=== PATIENT | female | born 1985 | race Caucasian/White ===

== ENCOUNTER 2017-04-09 17:29 | Emergency (ER) | payer OTHER ==
[2017-04-09 17:43] VITALS: BP 100/67; PULSE 74; RESP 18; TEMP 98.1; O2SAT 99
[2017-04-09 17:44] LABS: COLOR YELLOW; LEUKOCYTE ESTERASE,URINE 2+ (NEGATIVE); NITRITE,URINE NEGATIVE (NEGATIVE)
[2017-04-09 17:58] LABS: BACTERIA 2+ /hpf (NONE SEEN); RBC,URINE 50-182 /hpf (0-3); WBC,URINE 25-50 /hpf (0-3)
--- NOTE | 2017-04-09 18:06 | EDPHY ---
H & P Stated Complaint: urinary frequency x 1 week, burning and today developed hematuria Time Seen by Provider: 04/09/17 17:45 HPI/ROS: Chief Complaint: Hematuria HPI: 32-year-old woman presenting with 1 week of urinary urgency or frequency. Patient noted blood in her urine today. She has a history of UTIs in the past. No back pain. Some mild low abdominal cramping. Last menstrual. Was a week ago and normal. Patient states she is not . No fevers or chills. No nausea or vomiting. ROS: 10 point Review of Systems is negative except as noted in the HPI. PMH: None Medications: None Allergies: Azithromycin ciprofloxacin Social History: No smoking, occasional alcohol, no recreational drug use Family History: non-contributory Physical Exam: Gen: Awake, Alert, No Distress HEENT: Nose: no rhinorrhea Eyes: PERRLA, EOMI Mouth: Moist mucosa Neck: Supple, no JVD Chest: nontender, lungs clear to auscultation Heart: S1, S2 normal, no murmur Abd: Soft, very mild low abdominal tenderness palpation of her bladder, no guarding Back: no CVA tenderness, no midline tenderness Ext: no edema, non-tender Skin: no rash Neuro: CN II-XII intact, Sensation grossly intact, Strength 5/5 in bilateral upper and lower extremities - Personal History LMP (Females 10-55): - Medical/Surgical History Hx Asthma: No Hx Chronic Respiratory Disease: No Hx Diabetes: No Hx Cardiac Disease: No Hx Renal Disease: No Hx Cirrhosis: No Hx Alcoholism: No Hx HIV/AIDS: No Hx Splenectomy or Spleen Trauma: No Other PMH: ovarian cysts - Social History Smoking Status: Never smoked Constitutional: Initial Vital Signs Temperature (C) 36.7 C 04/09/17 17:40 Heart Rate 74 04/09/17 17:40 Respiratory Rate 18 04/09/17 17:40 Blood Pressure 100/67 04/09/17 17:40 O2 Sat (%) 99 04/09/17 17:40 O2 Delivery Mode Room Air Allergies/Adverse Reactions: azithromycin Allergy (Verified 04/09/17 17:40) ciprofloxacin Allergy (Verified 04/09/17 17:40) Home Medications: Medication Instructions Recorded Nitrofurantoin Monohyd/M-Cryst 100 mg PO BID #10 capsule 04/09/17 [Macrobid 100 mg Capsule] Phenazopyridine HCl [Pyridium] 200 mg PO TID #6 tab 04/09/17 Medical Decision Making - Data Points Laboratory Results: 04/09/17 17:30 Urine Color YELLOW Urine Appearance CLOUDY Urine pH 7.0 (5.0-7.5) Ur Specific [place] 1.025 (1.002-1.030) Urine Protein 1+ H (NEGATIVE) Urine Ketones NEGATIVE (NEGATIVE) Urine Blood 3+ H (NEGATIVE) Urine Nitrate NEGATIVE (NEGATIVE) Urine Bilirubin NEGATIVE (NEGATIVE) Urine Urobilinogen 0.2 EU EU (0.2-1.0) Ur Leukocyte Esterase 2+ H (NEGATIVE) Urine RBC 50-182 /hpf H /hpf (0-3) Urine WBC 25-50 /hpf H /hpf (0-3) Ur Epithelial Cells 1+ /lpf /lpf (NONE-1+) Urine Bacteria 2+ /hpf H /hpf (NONE SEEN) Urine Glucose NEGATIVE (NEGATIVE) Departure - Departure Disposition: Home, Routine, Self-Care Clinical Impression: Urinary tract infection Condition: Good Instructions: Urinary Tract Infection in Women (ED) Additional Instructions: Follow up with primary care physician in 5-7 days if symptoms are not improving. Referrals: Medina Cruz MD [Primary Care Provider] - As per Instructions Prescriptions: Nitrofurantoin Monohyd/M-Cryst [Macrobid 100 mg Capsule] 100 mg PO BID #10 capsule Phenazopyridine HCl [Pyridium] 200 mg PO TID #6 tab
== END 2017-04-09 18:10 | disposition home or self-care (01) ==
LOC: CED 17:29
DX: O23.40 Unspecified infection of urinary tract in pregnancy, unspecified trimester (principal); B96.89 Other specified bacterial agents as the cause of diseases classified elsewhere; Z3A.00 Weeks of gestation of pregnancy not specified
CPT/HCPCS: 81003-PO; 81015-PO

== ENCOUNTER → 2017-06-20 | Outpatient (CLI) | payer OTHER | LOC: BMCIMAGING 10:58 | PROVIDERS: ATTEND Internal Medicine | DX: N63 Unspecified lump in breast (principal) | CPT/HCPCS: G0204 ==

== ENCOUNTER 2018-10-21 21:08 | Emergency (ER) | payer OTHER ==
--- NOTE | 2018-10-21 21:15 | EDPHY ---
H & P Stated Complaint: Left side abd pain, hx ovarian cysts, pain, vaginal bleeding Time Seen by Provider: 10/21/18 21:15 HPI/ROS: HPI: This is a 33-year-old female who presents with Chief Complaint: Left side abd pain, hx ovarian cysts, pain, vaginal bleeding Location: Left-sided abdomen Quality: Pain Duration: Since this morning Signs and Symptoms: no fever, + nausea, + vomiting x 1, no hematemesis, no blood in stool, no abdominal bloating, no diarrhea, no back pain, no urinary symptoms, no vaginal discharge, no indigestion, no chest pain, no shortness of breath Timing: Acute Severity: 10 out 10 Context: Patient reports that she started spotting this morning and then developed left lower quadrant nonradiating moderate pain that has persisted all day. Patient reports that she has a history of ovarian cyst and had an ultrasound in May in this ER that showed left small adnexal cyst. She is followed at the [facility]. Patient has the IUD. Irregular menses. Patient reports that she felt nauseous all day and actually vomited once prior to arrival to the emergency room. Reports decreased appetite today and no bowel movement. Modifying Factors: None Comment: ROS: A comprehensive 10 system review of systems is otherwise negative aside from elements mentioned in the history of present illness. MEDICAL/SURGICAL/SOCIAL HISTORY: Medical history: Ovarian cyst Surgical history: Denies Social history: Never smoked. Family history noncontributory. CONSTITUTIONAL: Extremely well-appearing slightly anxious with mild distress adult white female, awake and alert, no obvious distress HEENT: Atraumatic and normocephalic, PERRL, EOMI. Nares patent; no rhinorrhea; no nasal mucosal edema. Tympanic membranes clear. Oropharynx clear, no exudate and moist pink mucosa. Airway patent. No lymphadenopathy. No meningismus. Cardiovascular: Normal S1/S2, regular rate, regular rhythm, without murmur rub or gallop. PULMONARY/CHEST: Symmetrical and nontender. Clear to auscultation bilaterally. Good air movement. No accessory muscle usage. ABDOMEN: Soft, nondistended, mild left lower quadrant tenderness to deep palpation, no rebound, no guarding, no peritoneal signs, no masses or organomegaly. No CVAT. EXTREMITIES: 2/2 pulses, strength 5/5, no deformities, no clubbing, no cyanosis or edema. NEUROLOGICAL: no focal neuro deficits. GCS 15. SKIN: Warm and dry, no erythema. no rash. Good capillary refill. Source: Patient Exam Limitations: No limitations - Personal History LMP (Females 10-55): Irregular Current Tetanus Diphtheria and Acellular Pertussis (TDAP): Yes - Medical/Surgical History Hx Asthma: No Hx Chronic Respiratory Disease: No Hx Diabetes: No Hx Cardiac Disease: No Hx Renal Disease: No Hx Cirrhosis: No Hx Alcoholism: No Hx HIV/AIDS: No Hx Splenectomy or Spleen Trauma: No Other PMH: ovarian cysts - Social History Smoking Status: Never smoked Constitutional: Initial Vital Signs Temperature (C) 36.4 C 10/21/18 21:09 Heart Rate 71 10/21/18 21:09 Respiratory Rate 16 10/21/18 21:09 Blood Pressure 106/71 10/21/18 21:09 O2 Sat (%) 97 10/21/18 21:09 O2 Delivery Mode Room Air Allergies/Adverse Reactions: azithromycin Allergy (Verified 10/21/18 21:09) ciprofloxacin Allergy (Verified 10/21/18 21:09) Home Medications: Medication Instructions Recorded Nitrofurantoin Monohyd/M-Cryst 100 mg PO BID #10 capsule 04/09/17 [Macrobid 100 mg Capsule] Phenazopyridine HCl [Pyridium] 200 mg PO TID #6 tab 04/09/17 Nitrofurantoin Macrobid [Macrobid] 100 mg PO BID #14 cap 10/21/18 Ondansetron Odt [Zofran Odt 4 mg 4 mg PO Q4 PRN #12 tab 10/21/18 (*)] oxyCODONE/APAP 5/325 [Percocet 1 - 2 tab PO Q4H PRN #10 tab 10/21/18 5/325 (*)] Medical Decision Making - Diagnostics Imaging Results: Imaging Impressions Pelvic/Renal Ultrasound 10/21/18 21:36 Impression: Normal ultrasound pelvis. Incidental hemorrhagic cyst right adnexa. Findings discussed with Sandy Wallace PAC at 22:32 hour, 10/21/2018. ED Course/Re-evaluation: Vital signs reviewed and stable upon arrival. No systemic signs. IV access and laboratory studies along with urinalysis and pelvic ultrasound ordered Patient given 1 L normal saline, IV Toradol 30 mg IV promethazine 12.5 mg 2223: Laboratory studies reviewed. No signs of leukocytosis/anemia/platelet dysfunction/RANDI/electrolyte imbalance/. 2235: Called by radiologist, Dr. Morrissey, who reports pelvic ultrasound shows right hemorrhagic cyst measuring 3 cm in diameter, small amount of free fluid, no fibroids, no ovarian torsion, no ectopic with good blood flow to both ovaries. 2243: Notified by RN that patient is complaining of pain that is 7/10. IV morphine 2 mg ordered 2315: Urinalysis shows 1+ nitrate, blood, trace LE, 3+ bacteria; sent for urine culture 0005: Reassessed patient who reports adequate relief of pain. She reports that she feels comfortable being discharged home. given a prepack for Macrobid/Zofran/Percocet and prescription for the same Advised to follow up with [facility] This patient was seen under the supervision of my secondary supervising physician. I evaluated care for this patient independently. Discussed this patient with Dr. Roberts who did not see the patient. Differential Diagnosis: Abdominal pain in a female including but not limited to ovarian cyst, pelvic inflammatory disease, ovarian torsion, urinary tract infection, and appendicitis. - Data Points Laboratory Results: Laboratory Results 10/21/18 21:22 10/21/18 21:22 10/21/18 10/21/18 10/21/18 22:55 21:22 21:22 WBC RBC Hgb Hct MCV MCH MCHC RDW Plt Count MPV Neut % (Auto) Lymph % (Auto) [place] % (Auto) Eos % (Auto) Baso % (Auto) Nucleat RBC Rel Count Absolute Neuts (auto) Absolute Lymphs (auto) Absolute Monos (auto) Absolute Eos (auto) Absolute Basos (auto) Absolute Nucleated RBC Immature Gran % Immature Gran # Sodium 137 mEq/L mEq/L (135-145) Potassium 3.9 mEq/L mEq/L (3.5-5.2) Chloride 106 mEq/L mEq/L (97-110) Carbon Dioxide 25 mEq/l mEq/l (22-31) Anion Gap 6 mEq/L mEq/L (6-14) BUN 12 mg/dL mg/dL (7-23) Creatinine 0.6 mg/dL mg/dL (0.6-1.0) Estimated GFR > 60 Glucose 89 mg/dL mg/dL (70-100) Calcium 8.8 mg/dL mg/dL (8.5-10.4) Beta HCG, Qual NEGATIVE Urine Color YELLOW Urine Appearance CLEAR Urine pH 7.0 (5.0-7.5) Ur Specific [place] 1.004 (1.002-1.030) Urine Protein NEGATIVE (NEGATIVE) Urine Ketones NEGATIVE (NEGATIVE) Urine Blood 1+ H (NEGATIVE) Urine Nitrate POSITIVE H (NEGATIVE) Urine Bilirubin NEGATIVE (NEGATIVE) Urine Urobilinogen NEGATIVE EU EU (0.2-1.0) Ur Leukocyte Esterase TRACE H (NEGATIVE) Urine RBC 1-3 /hpf /hpf (0-3) Urine WBC 5-10 /hpf H /hpf (0-3) Ur Epithelial Cells TRACE /lpf /lpf (NONE-1+) Urine Bacteria 3+ /hpf H /hpf (NONE SEEN) Urine Glucose NEGATIVE (NEGATIVE) 10/21/18 21:22 WBC 5.54 10^3/uL 10^3/uL (3.80-9.50) RBC 4.21 10^6/uL 10^6/uL (4.18-5.33) Hgb 13.1 g/dL g/dL (12.6-16.3) Hct 38.3 % % (38.0-47.0) MCV 91.0 fL fL (81.5-99.8) MCH 31.1 pg pg (27.9-34.1) MCHC 34.2 g/dL g/dL (32.4-36.7) RDW 11.7 % % (11.5-15.2) Plt Count 272 10^3/uL 10^3/uL (150-400) MPV 9.2 fL fL (8.7-11.7) Neut % (Auto) 44.1 % % (39.3-74.2) Lymph % (Auto) 38.1 % % (15.0-45.0) [place] % (Auto) 11.9 % % (4.5-13.0) Eos % (Auto) 5.2 % % (0.6-7.6) Baso % (Auto) 0.5 % % (0.3-1.7) Nucleat RBC Rel Count 0.0 % % (0.0-0.2) Absolute Neuts (auto) 2.44 10^3/uL 10^3/uL (1.70-6.50) Absolute Lymphs (auto) 2.11 10^3/uL 10^3/uL (1.00-3.00) Absolute Monos (auto) 0.66 10^3/uL 10^3/uL (0.30-0.80) Absolute Eos (auto) 0.29 10^3/uL 10^3/uL (0.03-0.40) Absolute Basos (auto) 0.03 10^3/uL 10^3/uL (0.02-0.10) Absolute Nucleated RBC 0.00 10^3/uL 10^3/uL (0-0.01) Immature Gran % 0.2 % % (0.0-1.1) Immature Gran # 0.01 10^3/uL 10^3/uL (0.00-0.10) Sodium Potassium Chloride Carbon Dioxide Anion Gap BUN Creatinine Estimated GFR Glucose Calcium Beta HCG, Qual Urine Color Urine Appearance Urine pH Ur Specific [place] Urine Protein Urine Ketones Urine Blood Urine Nitrate Urine Bilirubin Urine Urobilinogen Ur Leukocyte Esterase Urine RBC Urine WBC Ur Epithelial Cells Urine Bacteria Urine Glucose Medications Given: Discontinued Medications Sodium Chloride (Ns) 1,000 mls @ 0 mls/hr IV ONCE ONE; Wide Open PRN Reason: Protocol Stop: 10/21/18 21:37 Last Admin: 10/21/18 21:49 Dose: 1,000 mls Ketorolac Tromethamine (Toradol) 30 mg IVP EDNOW ONE Stop: 10/21/18 21:37 Last Admin: 10/21/18 21:50 Dose: 30 mg Morphine Sulfate (Morphine) 2 mg IVP EDNOW ONE Stop: 10/21/18 22:43 Last Admin: 10/21/18 22:52 Dose: 2 mg Nitrofurantoin (Macrobid 100mg Prepack#2) 1 btl TAKEHOME EDNOW ONE PRN Reason: Protocol Stop: 10/21/18 23:15 Last Admin: 10/21/18 23:36 Dose: 1 btl Ondansetron HCl (Zofran Odt 4 Mg Prepack#2) 1 btl TAKEHOME EDNOW ONE Stop: 10/21/18 23:16 Last Admin: 10/21/18 23:38 Dose: 1 btl Oxycodone/Acetaminophen (Percocet 5/325mg Prepack#4) 1 btl TAKEHOME EDNOW ONE Stop: 10/21/18 23:16 Last Admin: 10/21/18 23:37 Dose: 1 btl Promethazine HCl (Phenergan) 12.5 mg IVP ONCE ONE Stop: 10/21/18 21:37 Last Admin: 10/21/18 21:51 Dose: 12.5 mg Departure - Departure Disposition: Home, Routine, Self-Care Clinical Impression: Right ovarian cyst, Cystitis with hematuria Condition: Good Instructions: Ovarian Cyst (ED), Urinary Tract Infection in Women (ED) Additional Instructions: Rest as much as possible until you are feeling better. Consume a minimum of 8-10 glasses of water or electrolyte fluid replacement drinks that include Gatorade, Powerade, Pedialyte. Eat a bland diet for the next 48 hours and then slowly advance as tolerated. Take Zofran 1 tab every 4 hours as needed for nausea, vomiting. Take Tylenol 650 mg every 4 hours and/or Ibuprofen 600 mg every 8 hours with food as needed for pain. Use Percocet every 6 hours as needed for severe/break through pain. Do not use Tylenol and Percocet concomitantly. Take Macrobid twice daily x7 days. [facility] if symptoms persist at which time they will evaluate and recommend with you if conservative management versus further intervention is indicated. Referrals: [facility] [Outside] - As per Instructions Prescriptions: Nitrofurantoin Macrobid [Macrobid] 100 mg PO BID #14 cap Ondansetron Odt [Zofran Odt 4 mg (*)] 4 mg PO Q4 PRN #12 tab PRN Reason: Nausea/Vomiting, Use 1st oxyCODONE/APAP 5/325 [Percocet 5/325 (*)] 1 - 2 tab PO Q4H PRN #10 tab PRN Reason: Pain, Severe
[2018-10-21] MEDS ORDERED: PROMETHAZINE HCL 25 MG/ML INJ IVP ONE (21:36)
[2018-10-21] MEDS ORDERED: NS 1,000 ML IV ONE (21:36)
[2018-10-21] MEDS ORDERED: KETOROLAC 30 MG/1 ML SDV IVP ONE (21:36)
[2018-10-21 21:43] LABS: PLATELET COUNT 272 10^3/uL (150-400)
[2018-10-21] MEDS ORDERED: NITROFURANTOIN 100MG PREPACK#2 BTL TAKEHOME ONE (23:14)
[2018-10-21] MEDS ORDERED: ONDANSETRON 4MG PREPACK#2 BTL TAKEHOME ONE (23:15)
[2018-10-21] MEDS ORDERED: OXYCODONE/APAP 5/325MG PREPACK#4 BTL TAKEHOME ONE (23:15)
[2018-10-22 00:06] VITALS: BP 98/59
== END 2018-10-21 23:30 | disposition home or self-care (01) ==
DX: N83.201 Unspecified ovarian cyst, right side (principal); N30.91 Cystitis, unspecified with hematuria
CPT/HCPCS: 96374; J1885; J2270; J2550

== ENCOUNTER 2019-02-18 12:15 | Emergency (ER) | payer OTHER ==
[2019-02-18] MEDS ORDERED: NS 1,000 ML IV ONE (12:41)
[2019-02-18 12:54] LABS: PLATELET COUNT 331 10^3/uL (150-400)
[2019-02-18] MEDS ORDERED: fentaNYL 100 MCG/2 ML INJ ONE (12:59)
[2019-02-18] MEDS ORDERED: fentaNYL 100 MCG/2 ML INJ IVP ONE ×2 (13:00→13:40)
--- NOTE | 2019-02-18 13:11 | EDPHY ---
H & P Stated Complaint: Lower abdo pain, UTI and blood in urine. Time Seen by Provider: 02/18/19 12:30 HPI/ROS: CHIEF COMPLAINT: Pain with urination, lower abdominal pain HISTORY OF PRESENT ILLNESS: This is a 34-year-old female with a history of urinary tract infection and ovarian cysts. She has undergone surgery for removal of ovarian cyst in the past. She has had repeat urinary tract infections. Yesterday she developed urinary urgency, frequency, and dysuria. She called her primary care physician who prescribed Macrobid over the telephone. Patient began the Macrobid last night. However, she subsequently developed lower abdominal pain that has persisted and worsened throughout the day today. She took ibuprofen 400 mg early this morning and another 400 mg 1 hr prior to coming to the emergency department. She has had no relief with this medication. The pain extends across her lower abdomen. It did not come on abruptly. She has not had fever. She has nausea but no vomiting. No diarrhea and no constipation. She has an IUD in place. Menses are irregular. REVIEW OF SYSTEMS: A ten system review of systems was performed and is negative with the exception of the items mentioned in the HPI. Past medical history: 1. Urinary tract infections 2. Ovarian cysts Past surgical history: Laparoscopic surgery for removal of ovarian cyst Social history: No tobacco products. She lives with her and son. She works as an criminal attorney. General Appearance: Alert. Vital signs reviewed. She standing at the bedside holding her lower abdomen. Eyes: Pupils equal and round, no conjunctival injection, no discharge. Anicteric. ENT, Mouth: Mucous membranes are moist, no oropharyngeal erythema or edema. Neck: No lymphadenopathy, supple. Respiratory: Lungs are clear to auscultation; no wheezes, rales, or rhonchi. Cardiovascular: Regular rate and rhythm; no murmur, rub, or gallop. Gastrointestinal: Abdomen is soft with tenderness across the lower abdomen, perhaps slightly worse on the left than on the right, no guarding or rebound, no masses or organomegaly, bowel sounds normal. Skin: Warm and dry, no rashes on exposed skin, normal color. Back: No CVAT. Extremities: No lower extremity edema, no calf tenderness or swelling. Neurological: Alert and oriented. Moving all four extremities easily and equally. Psychiatric: Normal affect. - Personal History LMP (Females 10-55): 1-7 Days Ago Current Tetanus Diphtheria and Acellular Pertussis (TDAP): Yes - Medical/Surgical History Hx Asthma: No Hx Chronic Respiratory Disease: No Hx Diabetes: No Hx Cardiac Disease: No Hx Renal Disease: No Hx Cirrhosis: No Hx Alcoholism: No Hx HIV/AIDS: No Hx Splenectomy or Spleen Trauma: No Other PMH: ovarian cysts. UTI's. - Social History Smoking Status: Never smoked Constitutional: Initial Vital Signs Temperature (C) 36.7 C 02/18/19 12:15 Heart Rate 74 02/18/19 12:15 Respiratory Rate 16 02/18/19 12:15 Blood Pressure 102/69 02/18/19 12:15 O2 Sat (%) 98 02/18/19 12:15 O2 Delivery Mode Room Air Allergies/Adverse Reactions: azithromycin Allergy (Verified 02/20/19 04:03) ciprofloxacin Allergy (Verified 02/20/19 04:03) Home Medications: Medication Instructions Recorded Ondansetron Odt [Zofran Odt 4 mg 4 mg PO Q4 PRN #12 tab 10/21/18 (*)] Hydrocodone/APAP 5/325 [[place] 1 - 2 tab PO Q4 PRN #10 tab 02/18/19 5/325 (RX)] Cephalexin [Keflex (*)] 500 mg PO TID 02/20/19 Methenamine Deidra [Hiprex 1 gm (*)] 1 gm PO BID #10 tab 02/20/19 Ondansetron Odt [Zofran Odt 4 mg 4 mg PO Q4 PRN #10 tab 02/20/19 (*)] traMADol [Ultram 50 mg (*)] 50 mg PO Q4 PRN #15 tab 02/20/19 Medical Decision Making ED Course/Re-evaluation: 34-year-old female with history of recurrent urinary tract infections. She started Macrobid last night for presumed UTI. She has had 2 doses of Macrobid with worsening symptoms of urinary tract infection and also lower abdominal pain. She had a similar presentation in October. Her presentation is complicated by the fact that she has a history of ovarian cysts also. Urinalysis suggestive of UTI with red blood cells, white blood cells, and nitrate. Urine culture sent. White blood cell count very slightly elevated, CBC and chemistries otherwise normal. Beta HCG negative. She has an IUD in place. Pelvic ultrasound reported to me by Dr. Cal Morrissey. It shows that the bladder wall is thick, consistent with cystitis. Ovaries appear normal with no significant cysts (follicles present). Her IUD appears to be in good position. Please see his formal report. Patient received a 2nd dose of fentanyl 50 mcg IV. She had good pain relief with this medication. I think that she has a hemorrhagic cystitis. I do not find evidence of ruptured ovarian cyst, ectopic , or appendicitis. I do not think that she has pyelonephritis. She will return home and continue the Macrobid. Urine culture pending. She will also take peridium. She has been given a small quantity of [place] to use for pain as needed. We reviewed the danger signs that should prompt her to be immediately re-evaluated. She is advised to follow up with her primary care physician if she fails to improve. - Data Points Laboratory Results: Laboratory Results 02/18/19 12:45 02/18/19 12:45 Medications Given: Discontinued Medications Fentanyl (Sublimaze) 50 mcg IVP EDNOW ONE Stop: 02/18/19 13:01 Last Admin: 02/18/19 13:01 Dose: 50 mcg Fentanyl (Sublimaze) 50 mcg IVP EDNOW ONE Stop: 02/18/19 13:41 Last Admin: 02/18/19 14:08 Dose: 50 mcg Sodium Chloride (Ns) 1,000 mls @ 0 mls/hr IV EDNOW ONE; Wide Open PRN Reason: Protocol Stop: 02/18/19 12:42 Last Admin: 02/18/19 12:50 Dose: 1,000 mls Departure - Departure Disposition: Home, Routine, Self-Care Clinical Impression: Cystitis Condition: Good Instructions: Urinary Tract Infection in Women (ED) Additional Instructions: Continue the Macrobid and the azo. Lots of fluids. If you develop fever, worsening pain, vomiting, any new or concerning symptoms-- please return for another evaluation. If you fail to improve you should follow up with Dr. Cruz within the next 1-2 days. Referrals: Medina Cruz MD [Primary Care Provider] - As per Instructions Prescriptions: Hydrocodone/APAP 5/325 [[place] 5/325 (RX)] 1 - 2 tab PO Q4 PRN #10 tab PRN Reason: pain
[2019-02-18 14:38] VITALS: BP 108/72
== END 2019-02-18 14:38 | disposition home or self-care (01) ==
DX: N30.00 Acute cystitis without hematuria (principal); E86.9 Volume depletion, unspecified; Z87.440 Personal history of urinary (tract) infections; Z97.5 Presence of (intrauterine) contraceptive device
CPT/HCPCS: 96374; J3010

== ENCOUNTER 2019-02-20 03:55 | Emergency (ER) | payer OTHER ==
[2019-02-20] MEDS ORDERED: HYDROmorphONE/DILAUDID 2 MG/ML INJ IVP ONE ×2 (04:14→04:48)
[2019-02-20] MEDS ORDERED: KETOROLAC 15 MG/1 ML SDV IVP ONE (04:14)
--- NOTE | 2019-02-20 04:19 | EDPHY ---
H & P Stated Complaint: ONGOING UTI SX,,, NOW WORSE Time Seen by Provider: 02/20/19 04:00 HPI/ROS: HPI The patient presents with progressive lower abdominal pain and dysuria with urgency and frequency. Her symptoms began approximately 3 days ago and felt to her like typical UTI type symptoms. She began Macrobid. She was seen in the emergency department 2 days ago and had UA suggestive of UTI. She was treated with medication for pain, she had a pelvic ultrasound which demonstrated bladder wall thickening and no other pelvic pathology, she was advised to continue Macrobid which she did. Yesterday, her symptoms persisted and she was seen by her primary care doctor who gave her a dose of ceftriaxone and change her antibiotic to Keflex which she has had 2 doses of. Her urine culture from 2 days ago in the emergency department shows no growth. Her urine culture from November demonstrates Klebsiella, sensitive to many antibiotics. Her pain has progressed despite treatment. She reports a constant stabbing pain in her mid lower abdomen, with burning dysuria. She states that this feels more severe than her prior urinary tract infections. She has not had a fever, flank pain, she has had 1 episode of vomiting. REVIEW OF SYSTEMS 10 systems were reviewed and negative with the exception of the elements mentioned in the history of present illness. PMHx: History of hemorrhagic ovarian cyst status post laparoscopic procedure, history of frequent UTIs Soc Hx: Housed with her and child PHYSICAL General Appearance: Alert, uncomfortable appearing, crouching at the bedside Eyes: Pupils equal and round no pallor or injection ENT, Mouth: Mucous membranes moist Respiratory: There are no retractions, lungs are clear to auscultation Cardiovascular: Regular rate and rhythm Gastrointestinal: Abdomen is soft and tender in the suprapubic region, no masses, bowel sounds normal Neurological: A&O, moves all extremities Skin: Warm and dry, no rashes Musculoskeletal: Neck is supple non tender Extremities: symmetrical, full range of motion Psychiatric: Patient is oriented X 3, there is no agitation Source: Patient, Old records Exam Limitations: No limitations - Personal History Current Tetanus/Diphtheria Vaccine: Unsure Current Tetanus Diphtheria and Acellular Pertussis (TDAP): Unsure - Medical/Surgical History Hx Asthma: No Hx Chronic Respiratory Disease: No Hx Diabetes: No Hx Cardiac Disease: No Hx Renal Disease: No Hx Cirrhosis: No Hx Alcoholism: No Hx HIV/AIDS: No Hx Splenectomy or Spleen Trauma: No Other PMH: ovarian cysts. UTI's. - Social History Smoking Status: Never smoked Constitutional: Initial Vital Signs Temperature (C) 36.6 C 02/20/19 03:59 Heart Rate 75 02/20/19 03:59 Respiratory Rate 16 02/20/19 03:59 Blood Pressure 119/80 02/20/19 03:59 O2 Sat (%) 98 02/20/19 03:59 O2 Delivery Mode Room Air Allergies/Adverse Reactions: azithromycin Allergy (Verified 02/20/19 04:03) ciprofloxacin Allergy (Verified 02/20/19 04:03) Home Medications: Medication Instructions Recorded Ondansetron Odt [Zofran Odt 4 mg 4 mg PO Q4 PRN #12 tab 10/21/18 (*)] Hydrocodone/APAP 5/325 [[place] 1 - 2 tab PO Q4 PRN #10 tab 02/18/19 5/325 (RX)] Cephalexin [Keflex (*)] 500 mg PO TID 02/20/19 Methenamine Deidra [Hiprex 1 gm (*)] 1 gm PO BID #10 tab 02/20/19 Ondansetron Odt [Zofran Odt 4 mg 4 mg PO Q4 PRN #10 tab 02/20/19 (*)] traMADol [Ultram 50 mg (*)] 50 mg PO Q4 PRN #15 tab 02/20/19 Medical Decision Making Differential Diagnosis: 34-year-old female with history of ovarian cyst with hemorrhage, frequent UTIs presents with irritative voiding symptoms and progressive lower abdominal pain over the last 3 days despite treatment with Macrobid, ceftriaxone, Keflex. Here, she appears uncomfortable, she has suprapubic tenderness, making multiple trips to the bathroom to urinate. She does not have any other lower abdominal tenderness, flank pain to suggest pyelonephritis or appendicitis. Her pelvic ultrasound from 2 days ago was reviewed and she had no signs of ovarian cysts and a thickened bladder wall. Her urine culture from 2 days ago was negative which is somewhat surprising given her symptoms. Here, we repeated her UA which does continually show signs of infection. I have added on additional urine culture. She was given a dose of ceftriaxone, Dilaudid for pain, and also methenamine. All of these things improved her symptoms. Based on her urine culture from November, I have advised her to continue Keflex. I would like her to follow up with her primary care doctor. - Data Points Laboratory Results: Laboratory Results 02/20/19 04:20 02/20/19 04:20 Medications Given: Discontinued Medications Hydromorphone HCl (Dilaudid) 0.5 mg IVP EDNOW ONE Stop: 02/20/19 04:15 Last Admin: 02/20/19 04:25 Dose: 0.5 mg Hydromorphone HCl (Dilaudid) 0.5 mg IVP EDNOW ONE Stop: 02/20/19 04:49 Last Admin: 02/20/19 04:57 Dose: 0.5 mg Ceftriaxone Sodium/Dextrose (Rocephin 1 Gm (Premix)) 50 mls @ 100 mls/hr IV EDNOW ONE PRN Reason: Protocol Stop: 02/20/19 04:44 Last Admin: 02/20/19 04:26 Dose: 50 mls Sodium Chloride (Ns) 1,000 mls @ 0 mls/hr IV EDNOW ONE; Wide Open PRN Reason: Protocol Stop: 02/20/19 04:28 Last Admin: 02/20/19 04:28 Dose: 1,000 mls Sodium Chloride (Ns) 1,000 mls @ 0 mls/hr IV EDNOW ONE; Wide Open PRN Reason: Protocol Stop: 02/20/19 05:53 Last Admin: 02/20/19 06:11 Dose: 1,000 mls Ketorolac Tromethamine (Toradol) 15 mg IVP EDNOW ONE Stop: 02/20/19 04:15 Last Admin: 02/20/19 04:27 Dose: Not Given Methenamine [place] (Methenamine Deidra) 1 gm PO EDNOW ONE PRN Reason: Protocol Stop: 02/20/19 04:53 Last Admin: 02/20/19 05:11 Dose: 1 gm Ondansetron HCl (Zofran) 4 mg IVP EDNOW ONE Stop: 02/20/19 06:11 Last Admin: 02/20/19 06:11 Dose: 4 mg Tramadol HCl (Ultram) 50 mg PO EDNOW ONE Stop: 02/20/19 06:58 Last Admin: 04/12/19 06:58 Dose: 50 mg Departure - Departure Disposition: Home, Routine, Self-Care Clinical Impression: Hemorrhagic cystitis Condition: Good Instructions: Urinary Tract Infection in Women (ED) Additional Instructions: Please follow-up with your primary care doctor tomorrow. Please return to the emergency department if your worse in any way. Please make sure to drink plenty of fluids. You should take ibuprofen 400 mg every 6 hr around the clock for pain. I have given you follow-up information for the [facility] group. Please call them to make an appointment. Referrals: Medina Cruz MD [Primary Care Provider] - As per Instructions Katy Maloney MD [Medical Doctor] - As per Instructions Prescriptions: Methenamine Deidra [Hiprex 1 gm (*)] 1 gm PO BID #10 tab Ondansetron Odt [Zofran Odt 4 mg (*)] 4 mg PO Q4 PRN #10 tab PRN Reason: Nausea/Vomiting, Can'T Take Po traMADol [Ultram 50 mg (*)] 50 mg PO Q4 PRN #15 tab PRN Reason: Pain, Breakthrough
[2019-02-20] MEDS ORDERED: NS 1,000 ML IV ONE ×2 (04:27→05:52)
[2019-02-20 04:31] LABS: PLATELET COUNT 335 10^3/uL (150-400)
[2019-02-20] MEDS ORDERED: METHENAMINE HIPP 1 GM TAB PO ONE (04:52)
[2019-02-20] MEDS ORDERED: ONDANSETRON 4 MG/2 ML VIAL IVP ONE (06:10)
[2019-02-20] MEDS ORDERED: ONDANSETRON 4 MG/2 ML VIAL ONE (06:10)
[2019-02-20 06:14] VITALS: BP 105/63
[2019-02-20] MEDS ORDERED: traMADol 50 MG TAB ONE (06:56)
[2019-02-20] MEDS ORDERED: traMADol 50 MG TAB PO ONE (06:57)
== END 2019-02-20 07:00 | disposition home or self-care (01) ==
DX: N30.90 Cystitis, unspecified without hematuria (principal); E86.9 Volume depletion, unspecified
CPT/HCPCS: 96365; J0696; J1170; J2405

== ENCOUNTER → 2019-02-20 | Outpatient (CLI) | payer OTHER | LOC: FIMAGING 11:37 | PROVIDERS: ATTEND Urology | DX: N30.01 Acute cystitis with hematuria (principal); N20.0 Calculus of kidney; K59.00 Constipation, unspecified; Z97.5 Presence of (intrauterine) contraceptive device ==